=== PATIENT | female | born 1960 | race African-American/Black ===

== ENCOUNTER 2018-07-02 06:38 | Inpatient (IN) | payer MEDICARE, MEDICAID ==
[~2018-07-02] VITALS: Ht 152.4 cm; Wt 38.1 kg
[~2018-07-02 06:38] MED LIST: PROVIGIL
[2018-07-02 08:36] LABS: BASOPHILS % 0.6 % (0.0-2.0); EOSINOPHILS % 0.1 % (0.0-5.0); HEMATOCRIT. 44.4 % (36.0-48.0); LYMPHOCYTES % 16.5 % (20.0-50.0); MEAN CORPUSCULAR HEMOGLOBIN 32.2 pg (28.0-32.0); MEAN CORPUSCULAR VOLUME 95.5 fL (81.0-99.0); MEAN PLATELET VOLUME 8.7 fl (7.4-10.4); MONOCYTES % 8.8 % (2.0-8.0); PLATELET 309 x1000/uL (130-400); RED BLOOD CELL COUNT 4.65 mill/uL (4.2-5.4); RED CELL DISTRIBUTION WIDTH 14.5 % (11.6-14.6)
[2018-07-02 08:41] LABS: CHLORIDE 103 mEq/L (98-107)
[2018-07-02 08:54] LABS: ETHANOL BLOOD < 10 mg/dL
[2018-07-02] MEDS ORDERED: AMLODIPINE 10MG TABLET PO ONE (09:00)
[2018-07-02 09:58] LABS: CLARITY URINE CLEAR (CLEAR); COLOR URINE YELLOW (YELLOW); KETONES URINE 1+ (NEGATIVE); LEUKOCYTE ESTERASE URINE NEGATIVE (NEGATIVE); NITRITE URINE NEGATIVE (NEGATIVE); OCCULT BLOOD URINE 2+ (NEGATIVE); PH URINE 7.5 (4.5-8.0); PROTEIN URINE 2+ (NEGATIVE); UROBILINOGEN URINE 0.2 E.U./dL (0.2-1.0)
[2018-07-02 10:14] LABS: *AMPHETAMINES SCREEN URINE NEGATIVE (NEGATIVE); *BARBITURATES SCREEN URINE NEGATIVE (NEGATIVE); *BENZODIAZEPINES SCREEN URINE NEGATIVE (NEGATIVE); *COCAINE SCREEN URINE PRESUMTIVE POSITIVE (NEGATIVE); CANNABINOID URINE SCREEN PRESUMTIVE POSITIVE (NEGATIVE); OPIATES URINE SCREEN NEGATIVE (NEGATIVE); PHENCYCLIDINE URINE SCREEN NEGATIVE (NEGATIVE)
[2018-07-02 10:17] LABS: METHADONE URINE SCREEN NEGATIVE (NEGATIVE)
[2018-07-02] MEDS ORDERED: POTASSIUM CHLORIDE 20MEQ TABLET SR PO NR ×3 (11:19→17:02)
[2018-07-02] MEDS ORDERED: CEFTRIAXONE 1 G PREMIX 50 ML IV NR (11:20)
[2018-07-02 12:50] VITALS: BP 158/104
[2018-07-02 13:00] VITALS: BP 158/104
[2018-07-02] MEDS ORDERED: CLONIDINE 0.1MG TABLET PO PRN ×2 (14:15→22:15)
[2018-07-02] MEDS ORDERED: ALBU18HF2 IH (15:01)
[2018-07-02] MEDS ORDERED: MED4 GT (15:01)
[2018-07-02] MEDS ORDERED: AMOX-405 MT (15:01)
[2018-07-02 16:00] VITALS: BP 138/76
[2018-07-02 17:42] LABS: PHOSPHORUS 2.1 mg/dL (2.5-4.9)
[2018-07-02] MEDS ORDERED: ACETAMINOPHEN 325MG TABLET PO PRN ×2 (17:45→22:15)
[2018-07-02] MEDS: DEXT 5%/0.45% NACL KCL 40MEQ/L 1,000 ML IV SCH (18:00)
[2018-07-02 20:00] VITALS: BP 148/81
[2018-07-02] MEDS ORDERED: AMLODIPINE 5MG TABLET PO SCH (21:00)
[2018-07-02] MEDS: CLONIDINE 0.1MG TABLET PO SCH (21:43)
[2018-07-02] MEDS: AMOXICILLIN/POTASSIUM CLAVULANATE 875/125MG TAB PO SCH (21:45)
[2018-07-02] MEDS ORDERED: ONDANSETRON HCL 4MG/2ML INJ IV PRN (22:15)
[2018-07-02] MEDS ORDERED: DIPHENHYDRAMINE 50MG/ML VIAL IV PRN (22:15)
[2018-07-02] MEDS ORDERED: LEVOFLOXACIN 500MG PREMIX 100 ML IV SCH (22:15)
[2018-07-02] MEDS ORDERED: TEMAZEPAM 15MG CAPSULE PO PRN (22:15)
[2018-07-02] MEDS ORDERED: PROMETHAZINE/DEXTROMETHORPHAN 6.25-15MG/5ML BOTTLE 120ML PO PRN (22:15)
[2018-07-03] VITALS: BP 101/65
[2018-07-03] MEDS: IPRATROPIUM/ALBUTEROL 0.5-3(2.5)MG/3ML NEB HHN SCH ×4 (00:09→23:47)
[2018-07-03] MEDS: LEVOFLOXACIN 500MG PREMIX 100 ML IV SCH ×2 (00:49→22:49)
[2018-07-03 04:43] VITALS: BP 114/81
[2018-07-03] MEDS: DEXT 5%/0.45% NACL KCL 40MEQ/L 1,000 ML IV SCH (06:09)
[2018-07-03] MEDS: SODIUM CHLORIDE 0.9% INJ 3ML FLUSH IVF SCH ×3 (06:10→22:00)
[2018-07-03 07:01] LABS: BASOPHILS % 0.8 % (0.0-2.0); EOSINOPHILS % 0.3 % (0.0-5.0); HEMATOCRIT. 45.7 % (36.0-48.0); HEMOGLOBIN. 14.8 g/dL (12.0-16.0); LYMPHOCYTES % 20.8 % (20.0-50.0); MEAN CORPUSCULAR HEMOGLOBIN 31.3 pg (28.0-32.0); MEAN CORPUSCULAR VOLUME 96.6 fL (81.0-99.0); MEAN PLATELET VOLUME 8.1 fl (7.4-10.4); MONOCYTES % 13.3 % (2.0-8.0); NEUTROPHILS % 64.8 % (40.0-76.0); PLATELET 322 x1000/uL (130-400); RED BLOOD CELL COUNT 4.73 mill/uL (4.2-5.4); RED CELL DISTRIBUTION WIDTH 14.8 % (11.6-14.6)
[2018-07-03 08:00] VITALS: BP 103/63
[2018-07-03] MEDS: CLONIDINE 0.1MG TABLET PO SCH (09:00)
[2018-07-03 09:27] LABS: CHLORIDE 109 mEq/L (98-107)
[2018-07-03] MEDS: GUAIFENESIN 600MG ER TABLET PO SCH ×2 (09:38→22:49)
[2018-07-03] MEDS: AMOXICILLIN/POTASSIUM CLAVULANATE 875/125MG TAB PO SCH ×2 (09:38→22:49)
[2018-07-03 09:39] LABS: PHOSPHORUS 1.6 mg/dL (2.5-4.9)
[2018-07-03 12:00] VITALS: BP 109/71
[2018-07-03] MEDS ORDERED: POTASSIUM PHOS,M-BASIC-D-BASIC 20 MMOL in DEXT 5% WATER 243.3333 ML IV SCH (12:00)
[2018-07-03 16:00] VITALS: BP 101/65
[2018-07-04] VITALS: BP 100/61
[2018-07-04 04:00] VITALS: BP 110/63
[2018-07-04] MEDS: SODIUM CHLORIDE 0.9% INJ 3ML FLUSH IVF SCH ×2 (06:00→14:37)
[2018-07-04 08:00] VITALS: BP 103/63
[2018-07-04] MEDS ORDERED: MODAFINIL 200MG TABLET PO SCH ×3 (09:00→15:00)
[2018-07-04] MEDS ORDERED: PROVIGIL 200 MG PO SCH (09:00)
[2018-07-04] MEDS: GUAIFENESIN 600MG ER TABLET PO SCH (09:14)
[2018-07-04] MEDS: AMOXICILLIN/POTASSIUM CLAVULANATE 875/125MG TAB PO SCH (09:14)
[2018-07-04 09:28] LABS: BASOPHILS % 0.4 % (0.0-2.0); EOSINOPHILS % 0.8 % (0.0-5.0); HEMATOCRIT. 45.3 % (36.0-48.0); HEMOGLOBIN. 14.8 g/dL (12.0-16.0); LYMPHOCYTES % 19.9 % (20.0-50.0); MEAN CORPUSCULAR HEMOGLOBIN 31.6 pg (28.0-32.0); MEAN CORPUSCULAR VOLUME 96.7 fL (81.0-99.0); MEAN PLATELET VOLUME 7.9 fl (7.4-10.4); MONOCYTES % 10.1 % (2.0-8.0); NEUTROPHILS % 68.8 % (40.0-76.0); PLATELET 339 x1000/uL (130-400); RED BLOOD CELL COUNT 4.69 mill/uL (4.2-5.4); RED CELL DISTRIBUTION WIDTH 14.8 % (11.6-14.6)
[2018-07-04] MEDS: IPRATROPIUM/ALBUTEROL 0.5-3(2.5)MG/3ML NEB HHN SCH (09:47)
[2018-07-04 11:08] LABS: CHLORIDE 109 mEq/L (98-107)
[2018-07-04 11:17] LABS: PHOSPHORUS 4.1 mg/dL (2.5-4.9)
[2018-07-04 12:00] VITALS: BP 113/83
[2018-07-04 15:06] VITALS: BP 105/60
== END 2018-07-04 15:45 | disposition home or self-care (01) | DRG 73 ==
LOC: ER 06:38 → EDBEDREQ 10:47 → ENRESERV 11:58 → 6WST 13:03
PROVIDERS: ADMIT Internal Medicine; ATTEND Internal Medicine
DX: G90.8 Other disorders of autonomic nervous system (principal); G92 Toxic encephalopathy; R65.10 Systemic inflammatory response syndrome (SIRS) of non-infectious origin without acute organ dysfunction; J84.9 Interstitial pulmonary disease, unspecified; M62.82 Rhabdomyolysis; I16.9 Hypertensive crisis, unspecified; F17.210 Nicotine dependence, cigarettes, uncomplicated; E87.6 Hypokalemia; F12.10 Cannabis abuse, uncomplicated; J44.9 Chronic obstructive pulmonary disease, unspecified; G47.419 Narcolepsy without cataplexy; E83.39 Other disorders of phosphorus metabolism; I10 Essential (primary) hypertension; Z80.0 Family history of malignant neoplasm of digestive organs; Z82.49 Family history of ischemic heart disease and other diseases of the circulatory system; Z90.5 Acquired absence of kidney
CPT/HCPCS: 36415; 71045; 80048; 80305; 82962; 83735; 83880; 84100; 84484; 93005; 96365; 99285; G0482; J0696; J1956; J3490; J7050; J7060; J7620